=== PATIENT | female | born 1990 | race Caucasian/White ===

== ENCOUNTER 2017-05-06 15:04 | Emergency (ER) | payer OTHER | END 2017-05-06 16:57 | disposition home or self-care (01) | LOC: E/R 15:04 | DX: J06.9 Acute upper respiratory infection, unspecified (principal) | CPT/HCPCS: 93005; 99284-25 ==

== ENCOUNTER 2017-05-23 15:39 | Emergency (ER) | payer OTHER | END 2017-05-23 19:23 | disposition home or self-care (01) | LOC: E/R 15:39 | DX: N76.0 Acute vaginitis (principal); R30.0 Dysuria | CPT/HCPCS: 99284 ==

== ENCOUNTER 2017-08-18 11:06 | Emergency (ER) | payer OTHER ==
[2017-08-18 12:09] LABS: URINE BLOOD (Dip) POC 1+ (NEGATIVE); URINE GLUCOSE (Dip) POC Negative (NEGATIVE); URINE KETONES (Dip) POC Negative (NEGATIVE); URINE LEUKOCYTE EST (Dip) POC 2+ (NEGATIVE); URINE NITRITE (Dip) POC Negative (NEGATIVE); URINE TOTAL PROTEIN POC Negative (NEGATIVE)
[2017-08-18 12:09] LABS: URINE PH (Dip) POC 5.5 (5.0-8.5)
== END 2017-08-18 12:32 | disposition home or self-care (01) ==
LOC: FTE 11:06
DX: R30.0 Dysuria (principal)
CPT/HCPCS: 81003; 81025; 99283

== ENCOUNTER 2018-10-23 22:50 | Emergency (ER) | payer OTHER ==
[2018-10-23 23:15] LABS: URINE BLOOD (Dip) POC 2+ (NEGATIVE); URINE GLUCOSE (Dip) POC Negative (NEGATIVE); URINE KETONES (Dip) POC Negative (NEGATIVE); URINE LEUKOCYTE EST (Dip) POC 1+ (NEGATIVE); URINE NITRITE (Dip) POC Negative (NEGATIVE); URINE TOTAL PROTEIN POC Negative (NEGATIVE)
[2018-10-23 23:15] LABS: URINE PH (Dip) POC 5.5 (5.0-8.5)
[2018-10-23] MEDS: FLUCONAZOLE 150 MG TAB PO (23:45)
== END 2018-10-24 00:04 | disposition home or self-care (01) ==
LOC: FTE 10-24 00:04
DX: N30.00 Acute cystitis without hematuria (principal); B37.9 Candidiasis, unspecified
CPT/HCPCS: 81003; 81025; 99283